=== PATIENT | female | born 1990 | race African-American/Black ===

== ENCOUNTER 2018-11-20 07:46 | Emergency (ER) | payer SELFPAY ==
[~2018-11-20] VITALS: Ht 167.6 cm; Wt 57.6 kg
[2018-11-20] MEDS ORDERED: DIFL150T PO (09:24)
[2018-11-20] MEDS ORDERED: FLAG500T PO (09:25)
[2018-11-20] MEDS ORDERED: metroNIDAZOLE (FLAGYL) 500 MG TAB PO ONE (09:30)
[2018-11-20] MEDS ORDERED: FLUCONAZOLE 50MG TABLET PO ONE (09:30)
[2018-11-20 09:51] VITALS: BP 107/69
[2018-11-20 10:27] LABS: CHLAMYDIA DNA AMPLIFICATION NEGATIVE (NEGATIVE); GC DNA AMPLIFICATION NEGATIVE (NEGATIVE)
== END 2018-11-20 09:54 | disposition home or self-care (01) ==
LOC: M ED 07:46
DX: N76.0 Acute vaginitis (principal); B37.3 Candidiasis of vulva and vagina; Z86.19 Personal history of other infectious and parasitic diseases

== ENCOUNTER 2019-08-09 23:01 | Emergency (ER) | payer SELFPAY ==
[~2019-08-09] VITALS: Ht 167.6 cm; Wt 54.5 kg
[~2019-08-09 23:01] MED LIST: DIFL150T PO; FLAG500T PO
[2019-08-10] MEDS ORDERED: NS 1,000 ML IV ONE (01:00)
[2019-08-10 01:34] LABS: BASO % 0.3 % (0.0-1.0); EOS # 0.1 10^3/uL (0.0-0.5); EOS % 1.5 % (0.0-3.0); HEMATOCRIT 36.2 % (36.0-47.0); HEMOGLOBIN 11.4 g/dl (12.0-15.5); LYMPH # 1.4 10^3/uL (1.5-5.0); LYMPH % 24.6 % (24.0-44.0); MEAN CORPUSCULAR HEMOGLOBIN 25.2 pg (27.0-33.0); MEAN CORPUSCULAR HGB CONC 31.5 g/dl (32.0-36.5); MEAN CORPUSCULAR VOLUME 80.1 fl (80.0-96.0); MONO # 0.4 10^3/uL (0.0-0.8); MONO % 6.5 % (0.0-5.0); NEUTROPHILS # 3.9 10^3/uL (1.5-8.5); NEUTROPHILS % 66.8 % (36.0-66.0); PLATELET COUNT, AUTOMATED 301 10^3/uL (150-450); RED BLOOD COUNT 4.52 10^6/uL (4.00-5.40); WHITE BLOOD COUNT 5.8 10^3/uL (4.0-10.0)
--- NOTE | 2019-08-10 02:17 | REPVR ---
PROCEDURE INFORMATION: Exam: US Pelvis Complete, Transabdominal Exam date and time: 08/10/2019 1:45 AM Age: 28 years old Clinical history: Pelvic pain; Additional info: Pelvic, lower abd pain, onset during anal intercourse TECHNIQUE: Imaging protocol: Real-time transabdominal pelvic ultrasound with image documentation. Complete exam. COMPARISON: No relevant prior studies available. FINDINGS: Uterus measures 8.4 x 4.7 x 5 cm in size. No focal uterine mass. Endometrial stripe appears homogeneous, measuring 13 mm in thickness. Right ovary measures 3.1 x 4.4 x 2.8 cm in size. No dominant mass or cyst. Left ovary measures 5.7 x 4.0 x 4 cm in size. 3 x 2 cm left ovarian cyst. Doppler flow is documented in both ovaries. Trace free fluid is present in the pelvis. Bladder measures 9.6 x 7 x 9 cm with no intraluminal abnormality. IMPRESSION: Complex 3 x 2 cm left ovarian cyst without evidence of torsion Otherwise unremarkable pelvic ultrasound Electronically signed by: Amanuel Taylor On 08/10/2019 02:16:58 AM
[2019-08-10] MEDS ORDERED: LACT10SO29 PO (02:19)
[2019-08-10 02:39] VITALS: BP 103/61
--- NOTE | 2019-08-10 08:13 | REP ---
KUB: Single view. History: Lower abdominal and pelvic pain. Findings: Bowel gas pattern is normal with air and stool in a nondistended colon. Flank stripes are intact. Psoas margins are obscured. No mass, organomegaly, or pathologic calcification is seen. Impression: Negative KUB. Electronically Signed by Jesús Sampson MD 08/10/2019 08:05 A
== END 2019-08-10 02:48 | disposition home or self-care (01) ==
LOC: M ED 23:01
DX: N83.202 Unspecified ovarian cyst, left side (principal); K59.00 Constipation, unspecified; J45.909 Unspecified asthma, uncomplicated

== ENCOUNTER 2020-04-19 11:14 | Emergency (ER) | payer SELFPAY ==
[~2020-04-19] VITALS: Ht 167.6 cm; Wt 54.9 kg
[~2020-04-19 11:14] MED LIST changes: +LACT20EL PO
[2020-04-19] MEDS ORDERED: NORE1TAB43 PO (11:41)
[2020-04-19 12:12] LABS: BASO % 0.5 % (0.0-1.0); EOS # 0.2 10^3/uL (0.0-0.5); EOS % 2.8 % (0.0-3.0); HEMATOCRIT 39.7 % (36.0-47.0); HEMOGLOBIN 12.9 g/dl (12.0-15.5); LYMPH # 1.8 10^3/uL (1.5-5.0); MEAN CORPUSCULAR HGB CONC 32.5 g/dl (32.0-36.5); MONO # 0.4 10^3/uL (0.0-0.8); MONO % 6.6 % (0.0-5.0); NEUTROPHILS # 3.3 10^3/uL (1.5-8.5); NEUTROPHILS % 57.9 % (36.0-66.0); PLATELET COUNT, AUTOMATED 290 10^3/uL (150-450); RED BLOOD COUNT 4.96 10^6/uL (4.00-5.40); WHITE BLOOD COUNT 5.6 10^3/uL (4.0-10.0)
[2020-04-19 12:27] LABS: HCG, SERUM QUALITATIVE NEGATIVE (NEGATIVE)
[2020-04-19 12:43] LABS: BLOOD UREA NITROGEN 10 MG/DL (7-18); CALCIUM LEVEL 8.9 MG/DL (8.5-10.1); CARBON DIOXIDE LEVEL 23 MEQ/L (21-32); CHLORIDE LEVEL 108 MEQ/L (98-107); CREATININE FOR GFR 1.06 MG/DL (0.55-1.30); FREE T4 1.03 NG/DL (0.76-1.46); GLOMERULAR FILTRATION RATE > 60.0 (>60); GLUCOSE, FASTING 81 MG/DL (70-100); POTASSIUM SERUM 4.7 MEQ/L (3.5-5.1); SODIUM LEVEL 135 MEQ/L (136-145)
--- NOTE | 2020-04-19 13:08 | REPVR ---
PROCEDURE INFORMATION: Exam: US Pelvis Complete, Transabdominal and US Pelvis, Transvaginal Exam date and time: 04/19/2020 12:39 PM Age: 29 years old Clinical indication: Other: Irregular bleeding TECHNIQUE: Imaging protocol: Real-time transabdominal and transvaginal pelvic ultrasound (complete) with image documentation. Transvaginal imaging was used for better evaluation of the endometrium and adnexa. COMPARISON: US PELVIC NON-OB COMPLETE 08/10/2019 1:34 AM FINDINGS: Uterus/cervix: Uterus 9.8 x 4.8 x 5.8 cm transabdominally; 8.1 x 4.7 x 5.4 cm transvaginally. Endometrium 1.8 cm transabdominally; 1.8 cm transvaginally. Retroverted uterus. Posterior left uterine corporal hypoechoic 1.4 cm intramural leiomyoma. Right adnexa: Right ovary not identified transabdominally. Right ovary 2.7 x 2.5 x 2.3 cm transvaginally. Normal color and pulsed Doppler blood flow. The arterial resistive index is 0.60. Left adnexa: Left ovary not identified transabdominally. Left ovary 3.0 x 4.1 x 2.2 cm transvaginally. Hypoechoic 1.8 x 0.7 x 1.7 cm probable ruptured follicle. Normal color and pulsed Doppler blood flow. The arterial resistive index is 0.57. Intraperitoneal space: No peritoneal fluid. Bladder: The urinary bladder is decompressed and difficult to assess. IMPRESSION: Thickened endometrium. Clinical correlation with the patient's phase of menstruation recommended (luteal phase?). Endometrial hyperplasia is difficult to exclude. Follow-up recommended. Electronically signed by: Ok Taylor On 04/19/2020 13:08:20 PM
[2020-04-19 13:54] VITALS: BP 107/59
== END 2020-04-19 13:57 | disposition home or self-care (01) ==
LOC: M ED 11:14
DX: N83.202 Unspecified ovarian cyst, left side (principal); D25.9 Leiomyoma of uterus, unspecified; J45.909 Unspecified asthma, uncomplicated; F41.9 Anxiety disorder, unspecified; D64.9 Anemia, unspecified; Z79.899 Other long term (current) drug therapy

== ENCOUNTER → 2020-05-18 | Outpatient (CLI) | payer MEDICAID ==
[~2020-05-18] MED LIST changes: +IBUP-1022 PO; +LIDO2SOL17 PO; +NORE1TAB43 PO; +NORE1TAB73; +PENI500T PO
--- NOTE | 2020-05-20 15:30 | REP ---
PELVIC ULTRASOUND COMPARISON ULTRASOUND: 04/19/2020. TECHNIQUE: Real-time sonographic evaluation of the pelvis is performed. Transabdominal and endovaginal technique are utilized. FINDINGS: The urinary bladder measures 2.8 x 1.7 x 5.0 cm. The uterus measures 7.4 x 4.2 x 5.3 cm. Endometrial thickness is significantly decreased since the prior study measuring 6 mm. There is no endometrial fluid collection. Uterus is retroverted. There is a fibroid noted in the mid body of the uterus measuring 1.3 x 0.8 x 1.2 cm. Ovaries are normal in size and echotexture, right ovary measuring 3.9 x 2.1 x 2.6 cm and left ovary 3.3 x 1.4 x 2.0 cm. There is no evidence of ovarian cyst with normal size follicles seen in each ovary. No adnexal mass or free fluid is seen. There is no evidence of ovarian torsion bilaterally with duplex Doppler evaluation. IMPRESSION: Retroverted uterus contains a 1.3 cm fibroid. Endometrial thickness is normal at 6 mm. no adnexal mass or free fluid. MTDD
== END ==
LOC: M RAD 09:06
PROVIDERS: ATTEND Nurse Practitioner Family
DX: N85.4 Malposition of uterus (principal); D25.9 Leiomyoma of uterus, unspecified

== ENCOUNTER 2020-05-24 13:33 | Emergency (ER) | payer MEDICAID, SELFPAY ==
[~2020-05-24] VITALS: Ht 167.6 cm; Wt 54.6 kg
[~2020-05-24 13:33] MED LIST changes: -IBUP-1022 PO; -LIDO2SOL17 PO; -NORE1TAB73; -PENI500T PO
[2020-05-24] MEDS ORDERED: NORE1TAB73 (13:38)
[2020-05-24] MEDS ORDERED: LIDOCAINE VISCOUS 2% SOLN 15ML UDC TOP ONE (14:15)
[2020-05-24] MEDS ORDERED: PENICILLIN V POTASSIUM 500 MG TAB PO ONE (14:15)
[2020-05-24] MEDS ORDERED: IBUP-1022 PO (14:24)
[2020-05-24] MEDS ORDERED: PENI500T PO (14:24)
[2020-05-24] MEDS ORDERED: LIDO2SOL17 PO (14:24)
[2020-05-24 14:56] VITALS: BP 102/76
== END 2020-05-24 14:57 | disposition home or self-care (01) ==
LOC: M ED 13:33
DX: K04.7 Periapical abscess without sinus (principal); K02.9 Dental caries, unspecified; S02.5XXA Fracture of tooth (traumatic), initial encounter for closed fracture; X58.XXXA Exposure to other specified factors, initial encounter; Y92.9 Unspecified place or not applicable; Y93.9 Activity, unspecified; Y99.9 Unspecified external cause status; D64.9 Anemia, unspecified; Z79.3 Long term (current) use of hormonal contraceptives

== ENCOUNTER 2020-12-19 11:58 | Emergency (ER) | payer MEDICAID, SELFPAY ==
[~2020-12-19] VITALS: Ht 167.6 cm; Wt 55.9 kg
[~2020-12-19 11:58] MED LIST changes: +IBUP-1022 PO; +LIDO2SOL17 PO; +NORE1TAB73; +PENI500T PO
[2020-12-19] MEDS ORDERED: AUGM875T28 PO (13:29)
[2020-12-19 14:09] VITALS: BP 106/72
== END 2020-12-19 14:12 | disposition home or self-care (01) ==
LOC: M ED 11:58
DX: K02.9 Dental caries, unspecified (principal); K08.89 Other specified disorders of teeth and supporting structures; D50.9 Iron deficiency anemia, unspecified; Z87.440 Personal history of urinary (tract) infections; F41.9 Anxiety disorder, unspecified; Z79.899 Other long term (current) drug therapy

== ENCOUNTER 2021-09-18 11:22 | Emergency (ER) | payer MEDICAID ==
[~2021-09-18] VITALS: Ht 170.2 cm; Wt 60.6 kg
[~2021-09-18 11:22] MED LIST changes: +AUGM875T28 PO
[2021-09-18 11:23] VITALS: BP 126/76
== END 2021-09-18 20:20 | disposition left against medical advice (07) ==
LOC: M ED 11:22
DX: Z53.29 Procedure and treatment not carried out because of patient's decision for other reasons (principal)

== ENCOUNTER → 2021-11-08 | Outpatient (CLI) | payer MEDICAID, SELFPAY | LOC: M RAD 13:18 | PROVIDERS: ATTEND Pediatrics | DX: R10.2 Pelvic and perineal pain (principal); D25.9 Leiomyoma of uterus, unspecified; N85.4 Malposition of uterus; N83.201 Unspecified ovarian cyst, right side ==

== ENCOUNTER 2023-11-06 21:25 | Emergency (ER) | payer SELFPAY ==
[~2023-11-06] VITALS: Ht 170.2 cm; Wt 62.2 kg
[~2023-11-06 21:25] MED LIST changes: +LIDO15SO8 PO; -LIDO2SOL17 PO
[2023-11-06 21:26] VITALS: BP 137/78; TEMP 97.7; O2SAT 100
== END 2023-11-06 22:11 | disposition left against medical advice (07) ==
LOC: M ED 21:25
DX: Z53.21 Procedure and treatment not carried out due to patient leaving prior to being seen by health care provider (principal)

== ENCOUNTER → 2024-10-19 | Outpatient (REF) | payer BC ==
[2024-10-19 17:34] LABS: HEMATOCRIT 38.7 % (36.0-47.0); HEMOGLOBIN 12.3 g/dl (12.0-15.5); MEAN CORPUSCULAR HEMOGLOBIN 27.2 pg (27.0-33.0); MEAN CORPUSCULAR HGB CONC 31.8 g/dl (32.0-36.5); MEAN CORPUSCULAR VOLUME 85.4 fl (80.0-96.0); PLATELET COUNT, AUTOMATED 262 10^3/uL (150-450); RED BLOOD COUNT 4.53 10^6/uL (4.00-5.40); WHITE BLOOD COUNT 4.3 10^3/uL (4.0-10.0)
[2024-10-19 17:38] LABS: HCG, SERUM QUANTITATIVE < 2.6 MIU/ML (<4.2)
[2024-10-19 17:41] LABS: THYROID STIMULATING HORMONE 2.319 uIU/ML (0.55-4.78)
[2024-10-19 17:42] LABS: IRON (FE) 90 UG/DL (50-170); PERCENT SATURATION 21.7 % (13.2-45.0); TOTAL 25(OH) VITAMIN D 39.6 NG/ML (20.0-100.0); TOTAL IRON BINDING CAPACITY 414 UG/DL (250-425)
[2024-10-19 17:43] LABS: FERRITIN 28.6 NG/ML (7.3-270.7); FOLLICLE STIMULATING HORMONE 4.2 mIU/ML; LUTEINIZING HORMONE 9.6 mIU/ML
[2024-10-19 17:44] LABS: FREE T4 1.24 NG/DL (0.89-1.76)
== END ==
LOC: M LAB REF 16:34
PROVIDERS: ATTEND Pediatrics
DX: D50.9 Iron deficiency anemia, unspecified (principal); E55.9 Vitamin D deficiency, unspecified; N92.6 Irregular menstruation, unspecified

== ENCOUNTER 2025-04-02 19:17 | Emergency (ER) | payer BC, SELFPAY ==
[~2025-04-02] VITALS: Ht 170.2 cm; Wt 58.2 kg
[2025-04-02] MEDS ORDERED: [UNRECOGNIZED DRUG - CODE] PO (19:26)
[2025-04-02] MEDS ORDERED: METF-838 PO (19:26)
[2025-04-02 20:48] LABS: BASO # 0.0 10^3/uL (0.0-0.2); BASO % 0.1 % (0.0-1.0); EOS # 0.1 10^3/uL (0.0-0.5); EOS % 0.8 % (0.0-3.0); LYMPH # 1.4 10^3/uL (1.5-5.0); LYMPH % 18.1 % (24.0-44.0); MONO # 0.6 10^3/uL (0.0-0.8); MONO % 8.1 % (2.0-8.0); NEUTROPHILS # 5.8 10^3/uL (1.5-8.5); NEUTROPHILS % 72.6 % (36.0-66.0); PLATELET COUNT, AUTOMATED 311 10^3/uL (150-450)
[2025-04-02 20:53] LABS: ERYTHROCYTE SEDIMENTATION RATE 23 mm/hr (0-20)
[2025-04-02 21:16] LABS: C REACTIVE PROTEIN QUANTITATIV 0.90 MG/DL (<1.0); CALCIUM LEVEL 9.0 MG/DL (8.5-10.1); CARBON DIOXIDE LEVEL 26 MMOL/L (20-31); CHLORIDE LEVEL 105 MMOL/L (98-107); CREATININE FOR GFR 0.77 MG/DL (0.55-1.30); GLOMERULAR FILTRATION RATE > 90.0 (>60); POTASSIUM SERUM 4.0 MMOL/L (3.5-5.1); SODIUM LEVEL 140 MMOL/L (136-145)
[2025-04-02 21:18] LABS: HCG, SERUM QUALITATIVE NEGATIVE (NEGATIVE)
[2025-04-02] MEDS ORDERED: PERC5TAB12 PO (21:52)
[2025-04-02] MEDS ORDERED: AMOX875T2 PO (21:52)
[2025-04-02] MEDS: IBUPROFEN 600 MG TAB PO ONE (21:56)
[2025-04-02] MEDS: AUGMENTIN 875 MG TAB PO ONE (21:56)
[2025-04-02 22:29] VITALS: BP 109/63; TEMP 98.9; O2SAT 100
[2025-04-02] MEDS: OXYCODONE/APAP 5MG/325MG(HOME DOSE PACK) PO ONE (22:29)
== END 2025-04-02 22:34 | disposition other institution (70) ==
LOC: M ED 19:17
DX: K02.9 Dental caries, unspecified (principal)